=== PATIENT | female | born 1995 | race American Indian/Alaskan Native ===

== ENCOUNTER 2018-10-18 08:41 | Emergency (ER) | payer OTHER ==
[2018-10-18 08:50] VITALS: PULSE 58; RESP 17; TEMP 98.4; O2SAT 100
[2018-10-18 09:33] VITALS: BP 113/78
--- NOTE | 2018-10-18 09:43 | RAD ---
Date of service: 2018-10-18 09:07:16 Indication: injury Three views, left ankle Comparison: None available Findings: No acute displaced fracture or dislocation. Soft tissues appear unremarkable. No evidence of radiopaque foreign body. Impression: No acute displaced fracture or dislocation. If symptoms persist or if there is continued clinical concern, x-ray follow-up in 7-10 days should be considered.
--- NOTE | 2018-10-18 10:01 | C.PDOC ---
History Of Present Illness 22 y/o female comes in to ED stating she slipped down an escalator this morning and hurt her left ankle. Patient denies any head injuries, LOC, or other complaints. Time Seen by Provider: 10/18/18 08:57 Chief Complaint (Nursing): Lower Extremity Problem/Injury History Per: Patient History/Exam Limitations: no limitations Onset/Duration Of Symptoms: Hrs Current Symptoms Are (Timing): Still Present Past Medical History Reviewed: Historical Data, Nursing Documentation, Vital Signs Vital Signs: Last Vital Signs Temp 98.4 F 10/18/18 08:50 Pulse 58 L 10/18/18 08:50 Resp 17 10/18/18 08:50 BP 113/78 10/18/18 09:33 Pulse Ox 100 10/18/18 08:50 Family History: States: No Known Family Hx - Social History Hx Alcohol Use: No Hx Substance Use: No - Immunization History Hx Tetanus Toxoid Vaccination: No Hx Influenza Vaccination: No Hx Pneumococcal Vaccination: No Review Of Systems Except As Marked, All Systems Reviewed And Found Negative. Constitutional: Negative for: Fever, Chills Cardiovascular: Negative for: Chest Pain Respiratory: Negative for: Shortness of Breath Gastrointestinal: Negative for: Nausea, Vomiting, Abdominal Pain Musculoskeletal: Positive for: Other (Left ankle pain). Negative for: Neck Pain Skin: Negative for: Rash Physical Exam - Physical Exam Appears: Non-toxic, No Acute Distress Skin: Warm, Dry, No Ecchymosis Head: Atraumatic, Normacephalic Eye(s): bilateral: Normal Inspection Oral Mucosa: Moist Neck: Normal ROM, Supple Cardiovascular: Rhythm Regular, No Murmur Respiratory: Normal Breath Sounds, No Rales, No Rhonchi, No Wheezing Extremity: Tenderness (to left lateral malleolus), No Calf Tenderness, Capillary Refill (less than 2 seconds), No Deformity, No Swelling Pulses: Left Dorsalis Pedis: Normal Neurological/Psych: Oriented x3, Normal Speech ED Course And Treatment O2 Sat by Pulse Oximetry: 100 (RA) Pulse Ox Interpretation: Normal - Other Rad Ankle XR X-Ray: Read By Radiologist Interpretation: Findings: No acute displaced fracture or dislocation. Soft tissues appear unremarkable. No evidence of radiopaque foreign body. Impression: No acute displaced fracture or dislocation. Medical Decision Making Medical Decision Making: Plan: --Ankle XR Patient declined any pain medications. Disposition Counseled Patient/Family Regarding: Studies Performed, Diagnosis, Need For Followup - Disposition Disposition: HOME/ ROUTINE Disposition Time: 10:02 Condition: STABLE Additional Instructions: YANCI CASTILLO, thank you for letting us take care of you today. Your provider was Dora Ga MD and you were treated for LEFT ANKLE PAIN. The emergency medical care you received today was directed at your acute symptoms. If you were prescribed any medication, please fill it and take as directed. It may take several days for your symptoms to resolve. Return to the Emergency Department if your symptoms worsen, do not improve, or if you have any other problems. Please contact your doctor for a follow up appointment in 1-2 days. Bring any paperwork you were given at discharge with you along with any medications you are taking to your follow up visit. Our treatment cannot replace ongoing medical care by a primary care provider outside of the emergency department. Thank you for allowing the [facility] team to be part of your care today. Instructions: Ankle Sprain (DC) Forms: [facility] ([place]), General Discharge Instructions - POA Present On Arrival: None - Clinical Impression Clinical Impression: Ankle sprain - Scribe Statement The provider has reviewed the documentation as recorded by the Brinda Torres Provider Attestation: All medical record entries made by the Julio Cesaribmauricio were at my direction and personally dictated by me. I have reviewed the chart and agree that the record accurately reflects my personal performance of the history, physical exam, medi keeley decision making, and the department course for this patient. I have also personally directed, reviewed, and agree with the discharge instructions and disposition.
== END 2018-10-18 10:32 | disposition home or self-care (01) ==
LOC: C.ER 08:41
DX: S93.402A Sprain of unspecified ligament of left ankle, initial encounter (principal); W10.0XXA Fall (on)(from) escalator, initial encounter